=== PATIENT | female | born 1990 | race Caucasian/White ===

== ENCOUNTER 2016-06-07 12:14 | Outpatient (CLI) | payer MEDICAID ==
[2016-06-07] MEDS ORDERED: PREN1TAB50 PO (12:47)
[2016-06-07] MEDS ORDERED: CALC750T4 (12:48)
--- NOTE | 2016-06-07 14:03 | NUR ---
OB Triage [facility] 10-02-16 @ 23 weeks 2 days here with c/o spotting after intercourse. No vaginal drainage now. Denies pain. Denies LOF, Postitive movement. Dismissed home.
== END 2016-06-07 12:55 | disposition home or self-care (01) ==
LOC: OBOBS 12:14 → MC 12:14 → OBOBS 12:55
PROVIDERS: ATTEND Obstetrics & Gynecology
DX: O26.852 Spotting complicating pregnancy, second trimester (principal); Z3A.23 23 weeks gestation of pregnancy
CPT/HCPCS: 99211; 99212